=== PATIENT | female | born 1965 | race Native Hawaiian/Other Pacific Islander ===

== ENCOUNTER 2019-11-14 11:44 | Day surgery (SDC) | payer OTHER ==
[~2019-11-14] VITALS: Ht 30.5 cm; Wt 0.5 kg
== END 2019-11-14 13:19 | disposition home or self-care (01) ==
LOC: OR 11:44
PROC: 3E0R33Z Introduction of Anti-inflammatory into Spinal Canal, Percutaneous Approach (ICD-10-PCS; principal; 2019-11-14)
PROC: B01BYZZ Fluoroscopy of Spinal Cord using Other Contrast (ICD-10-PCS; 2019-11-14)
DX: M51.16 Intervertebral disc disorders with radiculopathy, lumbar region (principal)
CPT/HCPCS: J1020

== ENCOUNTER 2020-02-19 08:09 | Outpatient (CLI) | payer OTHER | END 2020-02-19 19:03 | disposition home or self-care (01) | LOC: EMG 08:09 | DX: M54.12 Radiculopathy, cervical region (principal) | CPT/HCPCS: 95860; 95911 ==